=== PATIENT | female | born 1950 | race African-American/Black ===

== ENCOUNTER 2017-07-03 13:47 | Emergency (ER) | payer MEDICARE, MEDICAID ==
[~2017-07-03] VITALS: Ht 170.2 cm; Wt 114.8 kg
[2017-07-03 15:17] VITALS: BP 102/51
== END 2017-07-03 16:05 | disposition home or self-care (01) ==
LOC: ER 13:47
DX: B02.9 Zoster without complications (principal); E11.9 Type 2 diabetes mellitus without complications; M19.90 Unspecified osteoarthritis, unspecified site; I10 Essential (primary) hypertension

== ENCOUNTER 2021-06-03 16:10 | Emergency (ER) | payer MEDICARE, MEDICAID ==
[~2021-06-03] VITALS: Ht 170.2 cm; Wt 123.8 kg
[2021-06-03] MEDS ORDERED: HYDROcodone-ACET 5/325MG TAB PO ONE (19:00)
[2021-06-03 23:47] VITALS: BP 161/51
== END 2021-06-04 01:31 | disposition home or self-care (01) ==
LOC: ER 16:10
DX: S52.531A Colles' fracture of right radius, initial encounter for closed fracture (principal); E11.9 Type 2 diabetes mellitus without complications; I10 Essential (primary) hypertension; W18.39XA Other fall on same level, initial encounter; Y93.89 Activity, other specified; Y92.89 Other specified places as the place of occurrence of the external cause; Y99.8 Other external cause status
CPT/HCPCS: 29125; 73110; 82962